=== PATIENT | male | born 1950 | race Caucasian/White ===

== ENCOUNTER 2022-02-23 06:36 | Day surgery (SDC) | payer OTHER ==
[2022-02-23] VITALS (19 sets, daily range): BP systolic 110–163; BP diastolic 54–81
[~2022-02-23] VITALS: Ht 185.4 cm; Wt 88.7 kg
[2022-02-23] MEDS ORDERED: MORP15TA PO (06:58)
[2022-02-23] MEDS ORDERED: ATOR20TA PO (06:58)
[2022-02-23] MEDS ORDERED: TIOT18CA3 (06:58)
[2022-02-23] MEDS ORDERED: ADV50100 IH (06:58)
[2022-02-23] MEDS ORDERED: GABA-530 PO (06:58)
[2022-02-23] MEDS ORDERED: LISI40TA13 PO (06:58)
[2022-02-23] MEDS ORDERED: ALB0.5UD IH (06:58)
[2022-02-23] MEDS ORDERED: ASPI-1265 PO (06:58)
[2022-02-23] MEDS ORDERED: METF-900 PO (06:58)
[2022-02-23 07:40] LABS: BASOPHILS % (AUTO) 0.4 % (0-1); EOSINOPHILS # (AUTO) 0.5 X10'3 (0-0.9); EOSINOPHILS % (AUTO) 6.2 % (0-6); HEMATOCRIT 49.8 % (42.0-52.0); HEMOGLOBIN 17.2 g/dl (14.0-17.9); LYMPHOCYTES # (AUTO) 1.2 X10'3 (1.1-4.8); LYMPHOCYTES % (AUTO) 13.7 % (21-51); MEAN CORPUSCULAR HEMOGLOBIN 29.7 PG (27.0-31.0); MEAN CORPUSCULAR HGB CONC 34.4 g/dL (33.0-36.5); MEAN CORPUSCULAR VOLUME 86.4 FL (78-98); MEAN PLATELET VOLUME 8.1 FL (7.4-10.4); MONOCYTES # (AUTO) 0.7 X10'3 (0-0.9); MONOCYTES % (AUTO) 8.1 % (2-12); NEUTROPHILS # (AUTO) 6.2 X10'3 (1.8-7.7); NEUTROPHILS % (AUTO) 71.6 % (42-75); PLATELET COUNT 169 X10'3 (140-440); RED BLOOD COUNT 5.77 X10'6 (4.70-6.10); RED CELL DISTRIBUTION WIDTH 13.9 % (11.5-14.5); WHITE BLOOD COUNT 8.6 X10'3 (4.5-11.0)
[2022-02-23 07:44] LABS: ALBUMIN 3.7 G/DL (3.4-5.0); ANION GAP 11 (8-16); BLOOD UREA NITROGEN 25 MG/DL (7-18); BUN/CREATININE RATIO 24.8 (5.4-32.0); CALCIUM 8.9 MG/DL (8.5-10.1); CHLORIDE 105 MMOL/L (99-107); CREATININE 1.01 MG/DL (0.60-1.10); GLUCOSE 116 MG/DL (70-104); POTASSIUM 4.3 MMOL/L (3.5-5.1); SODIUM 141 MMOL/L (135-145); TOTAL CARBON DIOXIDE 25.5 MMOL/L (24-32); eGFR 73 ML/MIN
[2022-02-23] MEDS ORDERED: LIDOcaine 1%/PF 5ML 10 MG/ML VIAL ONE (08:27)
[2022-02-23] MEDS ORDERED: fentaNYL/PF 50MCG/1 ML 2ML syringe ONE (08:27)
[2022-02-23] MEDS ORDERED: gelatin sponge, absorbable (Gelfoam 12-7MM) sponge TP ONE (08:27)
[2022-02-23] MEDS ORDERED: midazolam 1 mg/ML 2ml injection ONE (08:27)
--- NOTE | 2022-02-23 11:50 | NUR ---
Spoke with Dr. Chua re: CXR. Dc orders given .
== END 2022-02-23 12:00 | disposition home or self-care (01) ==
LOC: SSTAY O 06:36
PROVIDERS: ATTEND Radiology Vascular & Interventional Radiology
DX: R91.8 Other nonspecific abnormal finding of lung field (principal); Z79.899 Other long term (current) drug therapy; Z88.8 Allergy status to other drugs, medicaments and biological substances; F17.210 Nicotine dependence, cigarettes, uncomplicated; Z79.82 Long term (current) use of aspirin
CPT/HCPCS: 32408; 36415; 71045; 80048; 82948; 85025; 87811; 99152; 99153; J2250; J3010; J3490; J7030; 77012; A4615

== ENCOUNTER 2023-04-12 23:32 | Emergency (ER) | payer OTHER ==
[~2023-04-12 23:32] MED LIST: ADV50100 IH; ALB0.5UD IH; ASPI-1265 PO; ATOR20TA PO; GABA-530 PO; LISI40TA13 PO; METF-900 PO; MORP15TA PO; TIOT18CA3 IH
[2023-04-13] MEDS ORDERED: ALBU18HF2 INH (13:46)
[2023-04-13] MEDS ORDERED: ONDA8TAB13 PO (13:46)
[2023-04-13] MEDS ORDERED: CETI-90 PO (13:46)
[2023-04-13] MEDS ORDERED: PANT-47 PO (13:46)
[2023-04-13] MEDS ORDERED: LIDO700A47 TP (13:46)
[2023-04-13] MEDS ORDERED: ASPI81TA48 PO (13:46)
[2023-04-13] MEDS ORDERED: KAY15L PO (13:46)
[2023-04-13] MEDS ORDERED: GABA-535 PO (13:46)
== END 2023-04-13 00:07 | disposition left against medical advice (07) ==
LOC: ER 23:33
DX: J11.1 Influenza due to unidentified influenza virus with other respiratory manifestations (principal); Z53.21 Procedure and treatment not carried out due to patient leaving prior to being seen by health care provider

== ENCOUNTER 2023-04-13 00:49 | Inpatient (IN) | payer OTHER ==
[2023-04-13] VITALS (8 sets, daily range): BP systolic 86–100; BP diastolic 42–59; PULSE 84–99; RESP 14–24; TEMP 97.3–97.8; O2SAT 94–100
[~2023-04-13] VITALS: Ht 185.4 cm; Wt 69.8 kg
[2023-04-13 02:10] LABS: BASOPHILS % (AUTO) 0.1 % (0-1); EOSINOPHILS % (AUTO) 0.1 % (0-6); HEMATOCRIT 24.5 % (42.0-52.0); HEMOGLOBIN 7.7 g/dl (14.0-17.9); LYMPHOCYTES # (AUTO) 0.4 X10'3 (1.1-4.8); LYMPHOCYTES % (AUTO) 1.3 % (21-51); MEAN CORPUSCULAR HEMOGLOBIN 27.5 PG (27.0-31.0); MEAN CORPUSCULAR HGB CONC 31.4 g/dL (33.0-36.5); MEAN CORPUSCULAR VOLUME 87.5 FL (78-98); MEAN PLATELET VOLUME 8.1 FL (7.4-10.4); MONOCYTES # (AUTO) 1.5 X10'3 (0-0.9); MONOCYTES % (AUTO) 4.9 % (2-12); NEUTROPHILS # (AUTO) 27.9 X10'3 (1.8-7.7); NEUTROPHILS % (AUTO) 93.6 % (42-75); PLATELET COUNT 188 X10'3 (140-440); RED CELL DISTRIBUTION WIDTH 25.1 % (11.5-14.5)
[2023-04-13 02:12] LABS: WHITE BLOOD COUNT 29.8 X10'3 (4.5-11.0)
[2023-04-13 02:35] LABS: ALANINE AMINOTRANSFERASE 99 U/L (12-78); ALBUMIN 2.4 G/DL (3.4-5.0); ALBUMIN/GLOBULIN RATIO 0.5 (1.1-1.5); ALKALINE PHOSPHATASE 225 IU/L (46-116); ANION GAP 10 (8-16); ASPARTATE AMINO TRANSFERASE 65 U/L (10-37); BILIRUBIN,TOTAL 0.5 MG/DL (0.1-1.0); BLOOD UREA NITROGEN 38 MG/DL (7-18); BUN/CREATININE RATIO 24.2 (10.0-20.0); CALCIUM 9.2 MG/DL (8.5-10.1); CHLORIDE 98 MMOL/L (99-107); CREATININE 1.57 MG/DL (0.60-1.10); GLUCOSE 169 MG/DL (70-104); POTASSIUM 4.4 MMOL/L (3.5-5.1); SODIUM 136 MMOL/L (135-145); TOTAL CARBON DIOXIDE 28.2 MMOL/L (24-32); TOTAL PROTEIN 7.2 G/DL (6.4-8.2); eCRCL 42 ML/MIN; eGFR 44 ML/MIN
[2023-04-13 03:18] LABS: ANISOCYTOSIS 3+; PLATELET ESTIMATE NORMAL; TOTAL CELLS COUNTED 100
[2023-04-13 03:19] LABS: ELLIPTOCYTES FEW; HYPOCHROMASIA 1+; POIKILOCYTOSIS 1+
--- NOTE | 2023-04-13 03:45 | NUR ---
pt states last chemo treatment was 03/30 and he began getting sick shortly there after per patient and his patients wbc's are normally low, he has small cell carcinoma with metastasis.
[2023-04-13] MEDS ORDERED: piperacillin/tazo 4.5gm/100ml 100 ML IV SCH ×2 (04:03→04:21)
[2023-04-13] MEDS: normal saline 1000ml 1,000 ML IV SCH ×5 (04:14→19:38)
[2023-04-13] MEDS: azithromycin/NS 500mg/250ml 250 ML IV SCH ×2 (04:15→09:03)
[2023-04-13] MEDS ORDERED: ondansetron/PF 4mg/2ml inj IV PRN (04:35)
[2023-04-13] MEDS ORDERED: ondansetron 4mg rapidly disintigrating tab PO PRN (04:35)
[2023-04-13] MEDS ORDERED: bisacodyl 10mg suppository rectal RC PRN (04:35)
[2023-04-13] MEDS ORDERED: mag hydrox/Alum hydrox/simeth 30ml oral suspension PO PRN (04:35)
[2023-04-13] MEDS ORDERED: magnesium hydroxide 30ml (MOM) UD suspension PO PRN (04:35)
[2023-04-13] MEDS ORDERED: diphenhydrAMINE 50 mg/ml inj IV PRN (04:35)
[2023-04-13] MEDS ORDERED: diphenhydrAMINE 25mg capsule PO PRN (04:35)
[2023-04-13] MEDS ORDERED: normal saline 1000ml 1,000 ML IV SCH (04:35)
[2023-04-13] MEDS ORDERED: dextrose 50%-water 50ml dispensing syringe IV PRN ×2 (04:40)
[2023-04-13] MEDS ORDERED: albumin (Human) 5% 250ml 250 ML IV ONE (04:40)
[2023-04-13] MEDS ORDERED: glucagon, human recombinant 1mg kit SUBCUT PRN (04:40)
[2023-04-13] MEDS ORDERED: MESSAGE TO PHARMACY PO ONE (04:40)
[2023-04-13] MEDS ORDERED: DEXTROSE 15 GM of carb/4 tabs (each vial/BOTTLE has 4 tablets) PO PRN ×2 (04:40)
[2023-04-13] MEDS ORDERED: piperacillin/tazo 4.5gm/100ml 100 ML IV ONE (04:44)
[2023-04-13 07:35] LABS: HEMOGLOBIN A1C 6.3 % (4.5-6.2)
[2023-04-13 07:42] LABS: APTT 30 SECONDS (22-32); D-DIMER 2.36 MG/L FEU (0-0.50); INR 1.3 INR; PROTHROMBIN TIME 13.8 SECONDS (9.0-12.0)
[2023-04-13 07:43] LABS: PHOSPHORUS 5.6 MG/DL (2.3-4.5); THYROID STIMULATING HORMONE 0.73 ulU/ml (0.34-4.50)
--- NOTE | 2023-04-13 07:52 | NUR ---
NOTIFIED DR FERRO OF PT'S LOW BP 81/46. PT IS ASLEEP AND STATS HAVE BEEN LOW. PT STATED THAT HE DOES HAVE LOW BP.
[2023-04-13] MEDS ORDERED: azithromycin/NS 500mg/250ml 250 ML IV SCH (08:00)
[2023-04-13] MEDS ORDERED: methylPREDNISolone sod succ 125mg/2ml vial IV SCH (08:00)
[2023-04-13] MEDS: pantoprazole 40mg Tablet.DR PO SCH (08:00)
[2023-04-13] MEDS: heparin, porcine 5000 units/ml vial SQ SCH ×2 (08:50→21:25)
[2023-04-13] MEDS: docusate sod 100mg capsule PO SCH ×2 (08:50→20:00)
[2023-04-13] MEDS: ipratropium/albuterol 3ml nebule NEB PRN (09:05)
[2023-04-13] MEDS ORDERED: iohexol 350MG/ML 100ml bottle IV ONE (11:20)
[2023-04-13] MEDS ORDERED: CETI-90 PO (13:46)
[2023-04-13] MEDS ORDERED: LIDO700A47 TP (13:46)
[2023-04-13] MEDS ORDERED: GABA-535 PO (13:46)
[2023-04-13] MEDS ORDERED: PANT-47 PO (13:46)
[2023-04-13] MEDS ORDERED: KAY15L PO (13:46)
[2023-04-13] MEDS ORDERED: ALBU18HF2 INH (13:46)
[2023-04-13] MEDS ORDERED: ASPI81TA48 PO (13:46)
[2023-04-13] MEDS ORDERED: ONDA8TAB13 PO (13:46)
[2023-04-13] MEDS: CefTRIAXone/D5W-Rocephin 1gm 50 ML IV SCH (14:53)
[2023-04-13] MEDS: furosemide 20 MG/2 ML vial IV SCH (16:00)
--- NOTE | 2023-04-13 16:15 | NUR ---
Patient in room PCU 3023. I have received report from LINSEY, and had the opportunity to ask questions and assume patient care.
[2023-04-13 16:40] LABS: OSMOLALITY 300 MOSM/K (280-300)
--- NOTE | 2023-04-13 18:35 | NUR ---
Problems reprioritized. Patient report given, questions answered & plan of care reviewed with PETER CONWAY.
[2023-04-13] MEDS ORDERED: temazepam 15mg capsule PO PRN (21:00)
[2023-04-13] MEDS: insulin glargine (Lantus) pen - multi-dose SQ SCH (21:00)
[2023-04-13] MEDS: atorvastatin 20mg tablet PO SCH (21:24)
[2023-04-13] MEDS: gabapentin 400mg capsule PO SCH (21:24)
[2023-04-13 22:23] LABS: OCCULT BLOOD STOOL NEGATIVE (Neg)
[2023-04-13] MEDS: morphine 2 MG/ML inj. syringe IV PRN (22:30)
[2023-04-14] VITALS (18 sets, daily range): BP systolic 90–119; BP diastolic 34–71; PULSE 70–97; RESP 16–30; TEMP 97.3–97.9; O2SAT 94–98
[2023-04-14] MEDS: normal saline 1000ml 1,000 ML IV SCH ×5 (00:07→15:00)
[2023-04-14 00:47] LABS: BILIRUBIN,URINE NEGATIVE (Neg); CLARITY,URINE CLEAR (Clear); COLOR,URINE YELLOW (Yellow); GLUCOSE, URINE NEGATIVE (Neg); KETONES,URINE NEGATIVE (Neg); LEUKOCYTE ESTERASE ,URINE NEGATIVE (Neg); NITRITES, URINE NEGATIVE (Neg); OCCULT BLOOD,URINE NEGATIVE (Neg); PH,URINE 5.5 (4.8-8.0); PROTEIN,URINE 30 mg/dl (Neg); UROBILINOGEN,URINE 0.2 E.U/dL (0.2-1.0)
[2023-04-14 00:51] LABS: SODIUM,URINE RANDOM < 15 MEQ/L
[2023-04-14 00:54] LABS: UA COLLECTION TYPE URINAL
[2023-04-14 01:01] LABS: BACTERIA,URINE NONE SEEN /HPF (Neg); MUCUS STRANDS MANY /LPF (Neg); RBC,URINE 0-2 /HPF (0-2); SQUAMOUS EPITHELIAL CELL,UR FEW /LPF (FEW); WBC,URINE 0-4 /HPF (0-4)
--- NOTE | 2023-04-14 07:06 | NUR ---
Patient in room PCU 3023. I have received report from PETER CONWAY, and had the opportunity to ask questions and assume patient care.
[2023-04-14 07:25] LABS: BASOPHILS % (AUTO) 0.1 % (0-1); EOSINOPHILS % (AUTO) 0 % (0-6); LYMPHOCYTES # (AUTO) 0.3 X10'3 (1.1-4.8); LYMPHOCYTES % (AUTO) 1.1 % (21-51); MEAN CORPUSCULAR HEMOGLOBIN 27.1 PG (27.0-31.0); MEAN CORPUSCULAR VOLUME 87.5 FL (78-98); MEAN PLATELET VOLUME 8.2 FL (7.4-10.4); MONOCYTES # (AUTO) 0.6 X10'3 (0-0.9); MONOCYTES % (AUTO) 2.1 % (2-12); NEUTROPHILS # (AUTO) 25.8 X10'3 (1.8-7.7); NEUTROPHILS % (AUTO) 96.7 % (42-75); PLATELET COUNT 165 X10'3 (140-440); RED BLOOD COUNT 2.44 X10'6 (4.70-6.10); RED CELL DISTRIBUTION WIDTH 25.1 % (11.5-14.5)
[2023-04-14 07:31] LABS: HEMATOCRIT 21.4 % (42.0-52.0); HEMOGLOBIN 6.6 g/dl (14.0-17.9); WHITE BLOOD COUNT 26.7 X10'3 (4.5-11.0)
--- NOTE | 2023-04-14 07:41 | NUR ---
PAGE SENT PAGER ID: [phone] MESSAGE: [id number], MAULIK COHEN, CRITICAL LABS: WBC 26.7, HGB 6.6, HCT21.4. THANK YOU, JOSE EDUARDO [id number]
[2023-04-14 07:51] LABS: ANISOCYTOSIS 3+; TOTAL CELLS COUNTED 100
[2023-04-14 07:52] LABS: POIKILOCYTOSIS FEW
[2023-04-14 07:53] LABS: ALANINE AMINOTRANSFERASE 79 U/L (12-78); ALBUMIN/GLOBULIN RATIO 0.5 (1.1-1.5); ALKALINE PHOSPHATASE 209 IU/L (46-116); ANION GAP 7 (8-16); ASPARTATE AMINO TRANSFERASE 37 U/L (10-37); BILIRUBIN,TOTAL 0.2 MG/DL (0.1-1.0); BLOOD UREA NITROGEN 43 MG/DL (7-18); BUN/CREATININE RATIO 30.7 (10.0-20.0); CALCIUM 8.5 MG/DL (8.5-10.1); CHLORIDE 104 MMOL/L (99-107); GLUCOSE 173 MG/DL (70-104); HDL CHOLESTEROL 15 MG/DL (35-60); LDL CHOLESTEROL 23 MG/DL (50-100); POTASSIUM 4.3 MMOL/L (3.5-5.1); SODIUM 139 MMOL/L (135-145); TOTAL CARBON DIOXIDE 27.9 MMOL/L (24-32); TRIGLYCERIDES 57 MG/DL (20-135); eCRCL 47 ML/MIN; eGFR 50 ML/MIN
[2023-04-14] MEDS: docusate sod 100mg capsule PO SCH ×2 (08:00→20:00)
[2023-04-14] MEDS: furosemide 20 MG/2 ML vial IV SCH (08:00)
[2023-04-14 08:05] LABS: CHOL/HDL RATIO 3.5 (0.00-4.99); CHOLESTEROL 53 MG/DL (0-200)
--- NOTE | 2023-04-14 08:05 | NUR ---
CONTACTED DR. FERRO BY CELL PHONE. RECEIVED ORDERS FOR TYPE AND SCREEN AND 2 UNITS PACKED RED BLOOD CELLS. ORDERS ENTERED. PAPER WORK STARTED.
[2023-04-14 08:21] LABS: PLATELET ESTIMATE NORMAL
[2023-04-14] MEDS: aspirin 81mg, enteric-coated 1 TAB TABLET.DR PO SCH (08:24)
[2023-04-14] MEDS: predniSONE 20 mg tablet PO SCH (08:25)
[2023-04-14] MEDS: gabapentin 400mg capsule PO SCH ×3 (08:25→21:43)
[2023-04-14] MEDS: pantoprazole 40mg Tablet.DR PO SCH (08:26)
[2023-04-14] MEDS: heparin, porcine 5000 units/ml vial SQ SCH ×2 (08:28→21:45)
--- NOTE | 2023-04-14 08:55 | NUR ---
PAGE SENT PAGER ID: [phone] MESSAGE: [id number], MAULIK COHEN, BLOOD TRANFUSION CONSENT IS IN PT'S CHART AWAITING YOUR SIGNATURE. THANK YOU. JOSE EDUARDO [id number]
[2023-04-14] MEDS: CefTRIAXone/D5W-Rocephin 1gm 50 ML IV SCH (09:23)
[2023-04-14] MEDS: insulin Lispro (HumaLOG) vial - multi-dose SQ SCH (14:53)
--- NOTE | 2023-04-14 15:12 | NUR ---
Malnutrition consult: Pt reports 2-13 lb wt loss with decreased appetite/PO intake per malnutrition risk screen with RN. Pt seen at bedside, reports UBW 212-216 lbs with ~65 lb wt loss over the last year secondary to not eating much d/t not feeling well with chemo tx. Pt with scaled wt h/o 195 lbs 02/23/22 with current scaled wt of 151 lbs. This is severe wt loss of 23% in roughly 13.5 months with 29% wt loss using reported UBW. Noted pt with severe visible muscle wasting present in the clavicles with moderate bilateral temporal wasting. Pt states this occurred with the wt loss. Pt currently meets criteria for severe malnutrition. Pt admit for sepsis, PNA, acute on chronic hypoxemic respiratory failure, and COPD exacerbation. Pt endorses a good appetite, pending documentation of PO intake on CHO controlled diet. Pt reports drinking an Ensure QD PHARMACIST PER DIEM and agrees to Ensure during admit for nutrition repletion. Pt requests to receive ONS TID, to be sent pending physician approval in EMR. Pt denies food allergies or food preferences, difficulty chewing/swallowing, or constipation/diarrhea. LBM 04/13 per EMR. Pt provided with ONS coupons and RD contact information and encouraged to reach out if needed. Will continue to follow closely. Recommendations: 1) Liberalize to regular diet if able given malnutrition status and T2DM well controlled with A1c 6.3% 2) Ensure Enlive TID for nutrition repletion, pending physician approval in EMR 3) Routine bowel care 4) Daily scaled weights per rx Addendum: 04/14/23 at [address] Amended: Links added.
[2023-04-14] MEDS: piperacillin/tazo 3.375gm/50ml 50 ML IV SCH (15:39)
[2023-04-14 17:00] LABS: HEMATOCRIT 28.2 % (42.0-52.0); HEMOGLOBIN 8.8 g/dl (14.0-17.9); MEAN CORPUSCULAR HEMOGLOBIN 27.6 PG (27.0-31.0); MEAN CORPUSCULAR HGB CONC 31.2 g/dL (33.0-36.5); MEAN CORPUSCULAR VOLUME 88.5 FL (78-98); MEAN PLATELET VOLUME 8.5 FL (7.4-10.4); PLATELET COUNT 162 X10'3 (140-440); RED BLOOD COUNT 3.19 X10'6 (4.70-6.10); RED CELL DISTRIBUTION WIDTH 21.3 % (11.5-14.5)
[2023-04-14 17:10] LABS: WHITE BLOOD COUNT 36.4 X10'3 (4.5-11.0)
--- NOTE | 2023-04-14 17:13 | NUR ---
DR. FERRO NOTIFIED OF CRITICAL LAB: WBC 36.4. NO NEW ORDERS.
[2023-04-14] MEDS: lactose-reduced food (Ensure Enlive) - 237ml bottle PO SCH (18:00)
[2023-04-14] MEDS: morphine 2 MG/ML inj. syringe IV PRN (18:12)
--- NOTE | 2023-04-14 18:43 | NUR ---
Problems reprioritized. Patient report given, questions answered & plan of care reviewed with PETER CONWAY.
[2023-04-14] MEDS: atorvastatin 20mg tablet PO SCH (21:43)
[2023-04-14] MEDS: insulin glargine (Lantus) pen - multi-dose SQ SCH (21:55)
[2023-04-15] VITALS (13 sets, daily range): BP systolic 96–129; BP diastolic 46–67; PULSE 74–86; RESP 14–22; TEMP 97.6–98.2; O2SAT 93–99
[2023-04-15] MEDS: ipratropium/albuterol 3ml nebule NEB PRN ×2 (00:04→19:52)
[2023-04-15] MEDS: piperacillin/tazo 3.375gm/50ml 50 ML IV SCH ×3 (00:36→16:47)
--- NOTE | 2023-04-15 07:03 | NUR ---
Patient in room PCU 3023. I have received report from Gregory GREEN and had the opportunity to ask questions and assume patient care.
[2023-04-15 07:45] LABS: BASOPHILS % (AUTO) 0.1 % (0-1); EOSINOPHILS % (AUTO) 0 % (0-6); HEMATOCRIT 26.5 % (42.0-52.0); HEMOGLOBIN 8.4 g/dl (14.0-17.9); LYMPHOCYTES # (AUTO) 0.6 X10'3 (1.1-4.8); LYMPHOCYTES % (AUTO) 1.8 % (21-51); MEAN CORPUSCULAR HEMOGLOBIN 27.8 PG (27.0-31.0); MEAN CORPUSCULAR HGB CONC 31.6 g/dL (33.0-36.5); MEAN CORPUSCULAR VOLUME 87.9 FL (78-98); MEAN PLATELET VOLUME 8.2 FL (7.4-10.4); MONOCYTES # (AUTO) 1.3 X10'3 (0-0.9); NEUTROPHILS # (AUTO) 31.6 X10'3 (1.8-7.7); NEUTROPHILS % (AUTO) 94.1 % (42-75); PLATELET COUNT 168 X10'3 (140-440); RED BLOOD COUNT 3.02 X10'6 (4.70-6.10); RED CELL DISTRIBUTION WIDTH 21.5 % (11.5-14.5)
[2023-04-15] MEDS: docusate sod 100mg capsule PO SCH ×2 (08:00→20:54)
[2023-04-15] MEDS: lactose-reduced food (Ensure Enlive) - 237ml bottle PO SCH ×3 (08:00→18:00)
[2023-04-15 08:01] LABS: WHITE BLOOD COUNT 33.6 X10'3 (4.5-11.0)
[2023-04-15 08:18] LABS: ALANINE AMINOTRANSFERASE 76 U/L (12-78); ALBUMIN 1.9 G/DL (3.4-5.0); ALBUMIN/GLOBULIN RATIO 0.5 (1.1-1.5); ALKALINE PHOSPHATASE 190 IU/L (46-116); ANION GAP 8 (8-16); ASPARTATE AMINO TRANSFERASE 33 U/L (10-37); BILIRUBIN,TOTAL 0.3 MG/DL (0.1-1.0); BLOOD UREA NITROGEN 44 MG/DL (7-18); BUN/CREATININE RATIO 34.9 (10.0-20.0); CALCIUM 8.4 MG/DL (8.5-10.1); CHLORIDE 103 MMOL/L (99-107); CREATININE 1.26 MG/DL (0.60-1.10); GLUCOSE 134 MG/DL (70-104); SODIUM 138 MMOL/L (135-145); TOTAL CARBON DIOXIDE 26.7 MMOL/L (24-32); TOTAL PROTEIN 5.5 G/DL (6.4-8.2); eCRCL 52 ML/MIN; eGFR 56 ML/MIN
--- NOTE | 2023-04-15 08:18 | NUR ---
PAGER ID: [phone] MESSAGE: Arabella 3023A, Pt has critical lab value WBC - 33.6. Ramses [id number]
[2023-04-15 08:22] LABS: ANISOCYTOSIS 3+; PLATELET ESTIMATE NORMAL; POIKILOCYTOSIS FEW; TOTAL CELLS COUNTED 100
[2023-04-15] MEDS: furosemide 20 MG/2 ML vial IV SCH (08:39)
[2023-04-15] MEDS: predniSONE 20 mg tablet PO SCH (08:39)
[2023-04-15] MEDS: pantoprazole 40mg Tablet.DR PO SCH (08:39)
[2023-04-15] MEDS: aspirin 81mg, enteric-coated 1 TAB TABLET.DR PO SCH (08:39)
[2023-04-15] MEDS: gabapentin 400mg capsule PO SCH ×2 (08:40→13:19)
[2023-04-15] MEDS: heparin, porcine 5000 units/ml vial SQ SCH ×2 (08:40→20:55)
[2023-04-15] MEDS: insulin Lispro (HumaLOG) vial - multi-dose SQ SCH ×2 (10:41→19:15)
--- NOTE | 2023-04-15 15:55 | NUR ---
I missed the afternoon insulin dose for the pt due to high work load and no techs on the floor. Will check 1700 BS and correct accordingly.
--- NOTE | 2023-04-15 18:40 | NUR ---
Problems reprioritized. Patient report given, questions answered & plan of care reviewed with Royer GREEN.
[2023-04-15] MEDS: atorvastatin 20mg tablet PO SCH (20:55)
[2023-04-15] MEDS: gabapentin 300mg capsule PO SCH (20:55)
[2023-04-15] MEDS: morphine 2 MG/ML inj. syringe IV PRN (20:57)
[2023-04-15] MEDS: insulin glargine (Lantus) pen - multi-dose SQ SCH (22:25)
[2023-04-15] MEDS ORDERED: HYDROcodone/acetaminophen 5mg/325mg tablet PO PRN (22:40)
[2023-04-15] MEDS: HYDROcodone/acetaminophen 10/325mg tab PO PRN (23:19)
[2023-04-16] VITALS (10 sets, daily range): BP systolic 111–134; BP diastolic 46–75; PULSE 70–84; RESP 16–20; TEMP 97.3–98.5; O2SAT 88–96
[2023-04-16] MEDS: piperacillin/tazo 3.375gm/50ml 50 ML IV SCH ×4 (00:06→23:55)
--- NOTE | 2023-04-16 06:31 | NUR ---
Problems reprioritized. Patient report given, questions answered & plan of care reviewed with Ramses. Addendum: 04/16/23 at 0632 by Sebastian Hawk RN Amended: Links added.
--- NOTE | 2023-04-16 06:34 | NUR ---
Patient in room PCU 3023. I have received report from Royer GREEN and had the opportunity to ask questions and assume patient care.
[2023-04-16 06:39] LABS: ALANINE AMINOTRANSFERASE 68 U/L (12-78); ALBUMIN 1.9 G/DL (3.4-5.0); ALBUMIN/GLOBULIN RATIO 0.6 (1.1-1.5); ALKALINE PHOSPHATASE 156 IU/L (46-116); ANION GAP 6 (8-16); ASPARTATE AMINO TRANSFERASE 24 U/L (10-37); BASOPHILS % (AUTO) 0 % (0-1); BILIRUBIN,TOTAL 0.4 MG/DL (0.1-1.0); BLOOD UREA NITROGEN 35 MG/DL (7-18); BUN/CREATININE RATIO 29.2 (10.0-20.0); CALCIUM 8.2 MG/DL (8.5-10.1); CHLORIDE 102 MMOL/L (99-107); EOSINOPHILS % (AUTO) 0.1 % (0-6); GLUCOSE 103 MG/DL (70-104); HEMATOCRIT 27.1 % (42.0-52.0); HEMOGLOBIN 8.5 g/dl (14.0-17.9); LYMPHOCYTES # (AUTO) 0.6 X10'3 (1.1-4.8); MEAN CORPUSCULAR HEMOGLOBIN 27.7 PG (27.0-31.0); MEAN CORPUSCULAR HGB CONC 31.3 g/dL (33.0-36.5); MEAN CORPUSCULAR VOLUME 88.5 FL (78-98); MEAN PLATELET VOLUME 7.8 FL (7.4-10.4); MONOCYTES # (AUTO) 1.2 X10'3 (0-0.9); MONOCYTES % (AUTO) 3.7 % (2-12); NEUTROPHILS # (AUTO) 29.2 X10'3 (1.8-7.7); NEUTROPHILS % (AUTO) 94.2 % (42-75); PLATELET COUNT 185 X10'3 (140-440); POTASSIUM 4.1 MMOL/L (3.5-5.1); RED BLOOD COUNT 3.06 X10'6 (4.70-6.10); RED CELL DISTRIBUTION WIDTH 21.9 % (11.5-14.5); SODIUM 138 MMOL/L (135-145); TOTAL PROTEIN 5.3 G/DL (6.4-8.2); eCRCL 58 ML/MIN; eGFR 60 ML/MIN
--- NOTE | 2023-04-16 07:58 | NUR ---
PAGER ID: [phone] MESSAGE: Arabella [id number], Pt has critical lab value. WBC - 31.0 down from 33.6 yesterday. Ramses [id number]
[2023-04-16] MEDS: lactose-reduced food (Ensure Enlive) - 237ml bottle PO SCH ×3 (08:00→18:00)
[2023-04-16] MEDS: docusate sod 100mg capsule PO SCH ×2 (08:00→19:52)
[2023-04-16] MEDS: furosemide 20 MG/2 ML vial IV SCH (08:08)
[2023-04-16] MEDS: heparin, porcine 5000 units/ml vial SQ SCH ×2 (08:08→20:00)
[2023-04-16] MEDS: gabapentin 300mg capsule PO SCH ×2 (08:09→19:58)
[2023-04-16] MEDS: aspirin 81mg, enteric-coated 1 TAB TABLET.DR PO SCH (08:09)
[2023-04-16] MEDS: predniSONE 20 mg tablet PO SCH (08:09)
[2023-04-16] MEDS: pantoprazole 40mg Tablet.DR PO SCH (08:10)
[2023-04-16 09:14] LABS: ANISOCYTOSIS 3+; PLATELET ESTIMATE NORMAL; TOTAL CELLS COUNTED 100
[2023-04-16 09:21] LABS: ELLIPTOCYTES FEW; POIKILOCYTOSIS FEW; SCHISTOCYTES FEW
[2023-04-16] MEDS: insulin Lispro (HumaLOG) vial - multi-dose SQ SCH (10:06)
--- NOTE | 2023-04-16 12:56 | NUR ---
Problems reprioritized. Patient report given, questions answered & plan of care reviewed with Catalina MATUTE.
[2023-04-16] MEDS: guaiFENesin ER 600mg tablet PO SCH (19:58)
[2023-04-16] MEDS: HYDROcodone/acetaminophen 10/325mg tab PO PRN ×2 (19:59→23:55)
[2023-04-16] MEDS: insulin glargine (Lantus) pen - multi-dose SQ SCH (22:13)
[2023-04-16] MEDS: atorvastatin 20mg tablet PO SCH (22:14)
[2023-04-16] MEDS: ipratropium/albuterol 3ml nebule NEB PRN (22:42)
[2023-04-17 03:00] VITALS: BP 128/60; PULSE 85; RESP 16; TEMP 97.7; O2SAT 96
[2023-04-17 06:00] VITALS: BP 137/61; PULSE 71; RESP 22; TEMP 98.5; O2SAT 94
--- NOTE | 2023-04-17 06:26 | NUR ---
Problems reprioritized. Patient report given, questions answered & plan of care reviewed with Ramses. Addendum: 04/17/23 at 0626 by Sebastian Hawk RN Amended: Links added.
--- NOTE | 2023-04-17 06:44 | NUR ---
Patient in room PCU 3023. I have received report from Royer GREEN and had the opportunity to ask questions and assume patient care.
[2023-04-17] MEDS: ipratropium/albuterol 3ml nebule NEB PRN (07:55)
[2023-04-17 07:56] VITALS: PULSE 83; RESP 16; O2SAT 93
[2023-04-17] MEDS: lactose-reduced food (Ensure Enlive) - 237ml bottle PO SCH (08:00)
[2023-04-17] MEDS: docusate sod 100mg capsule PO SCH (08:00)
[2023-04-17 08:05] VITALS: PULSE 71; RESP 14
[2023-04-17] MEDS: piperacillin/tazo 3.375gm/50ml 50 ML IV SCH (09:03)
[2023-04-17] MEDS: furosemide 20 MG/2 ML vial IV SCH (09:03)
[2023-04-17] MEDS: heparin, porcine 5000 units/ml vial SQ SCH (09:04)
[2023-04-17] MEDS: guaiFENesin ER 600mg tablet PO SCH (09:05)
[2023-04-17] MEDS: gabapentin 300mg capsule PO SCH (09:06)
[2023-04-17] MEDS: predniSONE 20 mg tablet PO SCH (09:06)
[2023-04-17] MEDS: aspirin 81mg, enteric-coated 1 TAB TABLET.DR PO SCH (09:06)
[2023-04-17] MEDS: pantoprazole 40mg Tablet.DR PO SCH (09:06)
[2023-04-17 09:07] LABS: BASOPHILS % (AUTO) 0 % (0-1); EOSINOPHILS % (AUTO) 0.1 % (0-6); HEMATOCRIT 32.7 % (42.0-52.0); HEMOGLOBIN 10.1 g/dl (14.0-17.9); LYMPHOCYTES # (AUTO) 0.8 X10'3 (1.1-4.8); LYMPHOCYTES % (AUTO) 2.6 % (21-51); MEAN CORPUSCULAR VOLUME 90.5 FL (78-98); MEAN PLATELET VOLUME 7.5 FL (7.4-10.4); MONOCYTES # (AUTO) 1.4 X10'3 (0-0.9); MONOCYTES % (AUTO) 4.3 % (2-12); NEUTROPHILS # (AUTO) 29.5 X10'3 (1.8-7.7); PLATELET COUNT 253 X10'3 (140-440); RED BLOOD COUNT 3.62 X10'6 (4.70-6.10)
[2023-04-17 09:27] LABS: WHITE BLOOD COUNT 31.8 X10'3 (4.5-11.0)
[2023-04-17 09:31] LABS: ALANINE AMINOTRANSFERASE 66 U/L (12-78); ALBUMIN 2.1 G/DL (3.4-5.0); ALBUMIN/GLOBULIN RATIO 0.6 (1.1-1.5); ALKALINE PHOSPHATASE 159 IU/L (46-116); ANION GAP 4 (8-16); ASPARTATE AMINO TRANSFERASE 22 U/L (10-37); BILIRUBIN,TOTAL 0.4 MG/DL (0.1-1.0); BLOOD UREA NITROGEN 37 MG/DL (7-18); BUN/CREATININE RATIO 29.1 (10.0-20.0); CALCIUM 8.7 MG/DL (8.5-10.1); CHLORIDE 103 MMOL/L (99-107); CREATININE 1.27 MG/DL (0.60-1.10); GLUCOSE 115 MG/DL (70-104); POTASSIUM 3.6 MMOL/L (3.5-5.1); PRO BRAIN NATRIURETIC PEPTIDE 14949 PG/ML (0-125); SODIUM 141 MMOL/L (135-145); TOTAL PROTEIN 5.9 G/DL (6.4-8.2); eCRCL 53 ML/MIN; eGFR 56 ML/MIN
--- NOTE | 2023-04-17 09:34 | NUR ---
PAGER ID: [phone] MESSAGE: Arabella 3023A, Pt has critical lab value. WBC - 31.8 Ramses [id number]
[2023-04-17] MEDS: HYDROcodone/acetaminophen 10/325mg tab PO PRN (09:57)
[2023-04-17] MEDS: insulin Lispro (HumaLOG) vial - multi-dose SQ SCH (10:02)
--- NOTE | 2023-04-17 11:19 | NUR ---
PAGER ID: [phone] MESSAGE: Arabella [id number], Pt is being discharged but there is a note he is being sent home with Lasix but there is no order for Lasix. Does he need the med or do we discharge without? Ramses [id number]
[2023-04-17] MEDS ORDERED: FURO-150 PO (11:39)
[2023-04-17 11:40] LABS: ANISOCYTOSIS 3+; PLATELET ESTIMATE NORMAL; TOTAL CELLS COUNTED 100
[2023-04-17 11:42] LABS: ELLIPTOCYTES FEW; POIKILOCYTOSIS FEW; POLYCHROMASIA FEW; SCHISTOCYTES FEW
[2023-04-17] MEDS ORDERED: LEVO750T68 PO (11:44)
--- NOTE | 2023-04-17 12:21 | NUR ---
Pt D/C per hospitalist. Reviewed discharge instructions with patient and spouse, all questions and concerns addressed. PIV removed. Tele discontinued. All belongings taken home by pt. Pt was wheeled down to the lobby by nursing staff.
== END 2023-04-17 12:21 | disposition home or self-care (01) | DRG 871 ==
LOC: ER 00:50 → ED HOLD 04:36 → PCU 3S 16:48
PROVIDERS: ADMIT Family Medicine; ATTEND Internal Medicine
PROC: B32T1ZZ Computerized Tomography (CT Scan) of Left Pulmonary Artery using Low Osmolar Contrast (ICD-10-PCS; principal; 2023-04-13)
PROC: B3201ZZ Computerized Tomography (CT Scan) of Thoracic Aorta using Low Osmolar Contrast (ICD-10-PCS; 2023-04-13)
PROC: B32S1ZZ Computerized Tomography (CT Scan) of Right Pulmonary Artery using Low Osmolar Contrast (ICD-10-PCS; 2023-04-13)
PROC: 30233N1 Transfusion of Nonautologous Red Blood Cells into Peripheral Vein, Percutaneous Approach (ICD-10-PCS; 2023-04-14)
DX: A41.9 Sepsis, unspecified organism (principal); I50.23 Acute on chronic systolic (congestive) heart failure; J18.9 Pneumonia, unspecified organism; J96.21 Acute and chronic respiratory failure with hypoxia; N17.9 Acute kidney failure, unspecified; C34.90 Malignant neoplasm of unspecified part of unspecified bronchus or lung; I13.0 Hypertensive heart and chronic kidney disease with heart failure and stage 1 through stage 4 chronic kidney disease, or unspecified chronic kidney disease; D64.9 Anemia, unspecified; E11.22 Type 2 diabetes mellitus with diabetic chronic kidney disease; Z66 Do not resuscitate; N18.9 Chronic kidney disease, unspecified; E11.65 Type 2 diabetes mellitus with hyperglycemia; E86.1 Hypovolemia; J43.9 Emphysema, unspecified; I27.81 Cor pulmonale (chronic); E88.09 Other disorders of plasma-protein metabolism, not elsewhere classified; X58.XXXA Exposure to other specified factors, initial encounter; G89.4 Chronic pain syndrome; Z20.822 Contact with and (suspected) exposure to COVID-19; E78.5 Hyperlipidemia, unspecified; I50.9 Heart failure, unspecified; I25.10 Atherosclerotic heart disease of native coronary artery without angina pectoris; T38.0X5A Adverse effect of glucocorticoids and synthetic analogues, initial encounter; Z72.0 Tobacco use; Z88.6 Allergy status to analgesic agent; Z95.1 Presence of aortocoronary bypass graft; Z99.81 Dependence on supplemental oxygen
CPT/HCPCS: 36415; 36430; 71045; 71275; 80053; 80061; 81001; 82272; 82570; 82948; 83036; 83605; 83735; 83880; 83930; 84100; 84145; 84300; 84443; 84484; 85007; 85025; 85027; 85379; 85610; 85730; 86885; 86900; 86901; 86920; 87040; 87081; 87502; 87503; 87811; 93005; 93306; 94640; 94760; 97116; 97161; 97530; 99285; A4615; G0378; J0456; J0696; J1644; J1815; J1940; J2270; J2543; J2930; J3490; J7030; J7040; J7512; P9016; P9045; Q9967